=== PATIENT | male | born 1960 | race Caucasian/White ===

== ENCOUNTER 2021-06-19 20:39 | Emergency (ER) | payer MEDICARE ==
[~2021-06-19] VITALS: Ht 188 cm; Wt 100.0 kg
[2021-06-19] MEDS ORDERED: CRESTOR5 M1 (21:04)
[2021-06-19] MEDS ORDERED: LISINOPRIL2.5 MG PO (21:04)
[2021-06-19] MEDS ORDERED: FLEXERIL5 M1 PO (21:05)
[2021-06-19] MEDS ORDERED: TRAMADOL HCL50 MG PO (21:08)
[2021-06-19] MEDS ORDERED: VOLTAREN - GENE75 MG PO (21:08)
[2021-06-19] MEDS ORDERED: CLINDAMYCIN300 M1 PO (21:08)
[2021-06-19 21:25] VITALS: BP 148/80
== END 2021-06-19 21:25 | disposition home or self-care (01) ==
LOC: ED 20:39
DX: K04.7 Periapical abscess without sinus (principal); K02.9 Dental caries, unspecified; I10 Essential (primary) hypertension; F17.210 Nicotine dependence, cigarettes, uncomplicated